=== PATIENT | female | born 1955 | race Caucasian/White ===

== ENCOUNTER 2016-08-28 08:51 | Outpatient (CLI) | payer OTHER | END 2016-08-28 17:50 | disposition home or self-care (01) | LOC: SMA 08:51 | DX: Z12.31 Encounter for screening mammogram for malignant neoplasm of breast (principal) | CPT/HCPCS: G0202 ==

== ENCOUNTER 2017-01-30 12:46 | Outpatient (CLI) | payer OTHER | END 2017-01-30 18:29 | disposition home or self-care (01) | LOC: SRD 12:46 | PROVIDERS: ATTEND Internal Medicine | DX: R06.02 Shortness of breath (principal) | CPT/HCPCS: 71020-TC ==

== ENCOUNTER 2017-11-06 08:56 | Outpatient (CLI) | payer BC | END 2017-11-06 19:42 | disposition home or self-care (01) | LOC: SMA 08:56 | PROVIDERS: ATTEND Internal Medicine | DX: Z12.31 Encounter for screening mammogram for malignant neoplasm of breast (principal) | CPT/HCPCS: 77067 ==

== ENCOUNTER 2018-12-31 09:36 | Outpatient (CLI) | payer BC | END 2019-01-01 20:14 | disposition home or self-care (01) | LOC: SMA 09:36 | PROVIDERS: ATTEND Internal Medicine | DX: Z12.31 Encounter for screening mammogram for malignant neoplasm of breast (principal); N64.89 Other specified disorders of breast | CPT/HCPCS: 77067 ==

== ENCOUNTER 2020-12-26 11:00 | Outpatient (CLI) | payer OTHER | END 2020-12-26 19:15 | disposition home or self-care (01) | LOC: SMA 11:00 | PROVIDERS: ATTEND Internal Medicine | DX: Z12.31 Encounter for screening mammogram for malignant neoplasm of breast (principal) | CPT/HCPCS: 77067 ==

== ENCOUNTER 2022-09-18 10:16 | Outpatient (CLI) | payer OTHER, MEDICARE | END 2022-09-18 19:19 | disposition home or self-care (01) | LOC: SMA 10:16 | PROVIDERS: ATTEND Internal Medicine | DX: Z12.31 Encounter for screening mammogram for malignant neoplasm of breast (principal) | CPT/HCPCS: 77067 ==